=== PATIENT | female | born 1995 | race Caucasian/White ===

== ENCOUNTER 2017-06-12 17:07 | Emergency (ER) | payer MEDICAID, OTHER ==
[2017-06-12 17:08] VITALS: BMI 24.4
[2017-06-12 17:35] VITALS: TEMP 99.1; O2SAT 100
[2017-06-12] MEDS ORDERED: Sodium Chloride 0.9% 1,000 ML IV STA (17:58)
--- NOTE | 2017-06-12 18:12 | ED PDOC ---
Arrival/HPI - General Historian: Patient - History of Present Illness Time/Duration: 1 week Symptom Onset: Gradual Symptom Course: Unchanged Quality: Cramping Severity Level: 5 - General Chief Complaint: Abdominal Pain Time Seen by Provider: 06/12/17 17:52 - History of Present Illness Narrative History of Present Illness (Text): 06/12/17 18:09 21-year-old female presents today with a one-week history of lower abdominal cramping. Patient states pain radiates into her thighs. He states this is a normal sensation that she gets when she is due to have her period. Patient states her last period was May 27. Patient states a little over a week ago she took a Plan B. Patient states after utilizing the plan B she also had unprotected sex. Patient denies nausea vomiting diarrhea or constipation. Denies urinary symptoms. Denies bladder or bowel incontinence. Denies numbness weakness or tingling in the lower extremities. Denies chest pain or shortness of breath. Took Motrin for pain at home. No other complaints. (Tavia Ogden ) Past Medical History - Provider Review Nursing Documentation Reviewed: Yes - Travel History Have you recently traveled outside [place] w/in the past 3 mons?: No - Past History Past History: No Previous - Infectious Disease Hx of Infectious Diseases: None - Tetanus Immunization Tetanus Immunization: Up to Date - Past Medical History Past Medical History: No Previous - Psychiatric Hx Depression: No Hx Emotional Abuse: No Hx Physical Abuse: No Hx Substance Use: No - Past Surgical History Past Surgical History: No Previous - Suicidal Assessment Feels Threatened In Home Enviroment: No Family/Social History - Physician Review Nursing Documentation Reviewed: Yes Family/Social History: Unknown Family HX Smoking Status: Light Smoker < 10 Cigarettes Daily Hx Alcohol Use: No Hx Substance Use: No Hx Substance Use Treatment: No Allergies/Home Meds Allergies/Adverse Reactions: Allergies Penicillins Allergy (Verified 06/12/17 17:34) ANAPHYLAXIS Review of Systems - Review of Systems Constitutional: absent: Fatigue, Fevers Respiratory: absent: SOB, Cough Cardiovascular: absent: Chest Pain, Palpitations Gastrointestinal: Abdominal Pain. absent: Constipation, Diarrhea, Nausea, Vomiting Genitourinary Female: absent: Dysuria, Frequency, Hematuria, Vaginal Bleeding, Vaginal Discharge Musculoskeletal: Arthralgias, Back Pain. absent: Neck Pain Skin: absent: Rash, Pruritis Neurological: absent: Headache, Dizziness Psychiatric: absent: Anxiety, Depression Physical Exam Vital Signs Reviewed: Yes Temperature: Afebrile Blood Pressure: Normal Pulse: Regular Respiratory Rate: Normal Appearance: Positive for: Well-Appearing, Non-Toxic, Comfortable Pain Distress: None Mental Status: Positive for: Alert and Oriented X 3 - Systems Exam Head: Present: Atraumatic Mouth: Present: Moist Mucous Membranes Neck: Present: Normal Range of Motion Respiratory/Chest: Present: Clear to Auscultation, Good Air Exchange. No: Respiratory Distress, Accessory Muscle Use Cardiovascular: Present: Regular Rate and Rhythm, Normal S1, S2. No: Murmurs Abdomen: Present: Normal Bowel Sounds. No: Tenderness, Distention, Peritoneal Signs, Rebound, Guarding Genitourinary/Pelvic Exam: Present: Normal External Genitalia, Vaginal Discharge (slight white discharge noted.), Cervical os Closed, Other ( chaparoned by: kimi; er registration). No: Vaginal Bleeding, Vaginal Lesions , Adenexal Tenderness, Adenexal Mass, Cervical Motion Tendernes, Odor Back: Present: Normal Inspection. No: CVA Tenderness Upper Extremity: Present: Normal ROM Lower Extremity: Present: Normal ROM Neurological: Present: GCS=15, Speech Normal Skin: Present: Warm, Dry, Normal Color. No: Rashes Psychiatric: Present: Alert, Oriented x 3 Vital Signs Temp Pulse Resp BP Pulse Ox 06/12/17 22:03 85 18 115/68 100 06/12/17 17:34 99.1 F 81 16 115/75 100 Medical Decision Making ED Course and Treatment: 06/12/17 18:37 I was available for consultation during PA evaluation. The chart was reviewed by me, and I agree with disposition. The documented history was done by the physician electrical contractor. The documented physical exam was done by the physician electrical contractor. The documented procedures were done by the physician electrical contractor. (Marcos Zimmerman) 06/12/17 18:11 21yr old female with 1 week of lower abdominal cramping. cbc; wnl cmp: wnl beta hcg: negative ua: wnl US: FINDINGS: Uterus/cervix: The uterus measures 6.6 cm. Endometrial thickness 8mm. No myometrial mass. Right ovary: Right ovary 3.9 cm. Right ovarian simple cyst 2.6 cm. Normal blood flow. Left ovary: Left ovary 3.7 cm. Left ovary contains small physiologic follicles. Normal blood flow. Free fluid: No free fluid. IMPRESSION: Small follicles bilaterally. Small right ovarian cyst 2.6 cm. No torsion, no mass, or IUP pt with pain; toradol added. CT abd/pelvis; FINDINGS: Lower thorax: The bilateral lung bases are clear. ABDOMEN: Liver: No acute findings. Gallbladder and bile ducts: The gallbladder is decompressed. No calcified stones. No significant intra- or extrahepatic biliary ductal dilation. Pancreas: Enhances homogeneously. No ductal dilation. No discrete mass. Spleen: No acute findings. Adrenals: No acute findings. Kidneys and ureters: No acute findings. No hydronephrosis or renal calculi. No discrete solid mass. PELVIS: Bladder: No acute findings. Reproductive: 26 mm rounded focus of decreased attenuation within the right hemipelvis and this likely corresponds to the patient's right ovarian cyst, detected on ultrasound examination, performed the same day. Appendix: The air filled appendix is of normal caliber (series 2, image 108). ABDOMEN and PELVIS: Stomach and bowel: No obstruction. No mucosal thickening. Peritoneum: No significant fluid collection. No free air. Lymph nodes: No pathologically enlarged lymph nodes. Vasculature: Unremarkable. Bones: No acute fracture. IMPRESSION: Right ovarian cyst. Normal appendix. pt reassessment; pt feeling better after medications; abdomen; non tender; will send gC/chlamydia cultures. zithromax 2g PO given. I discussed the results and thus with the patient. Advised follow-up with the primary care physician and lab director within the next 2 days. Advised to return if symptoms worsen or persist or if new concerning symptoms develop Patient verbalizes understanding of discharge instructions and need for immediate followup. advised pt to f/u with gc/chlamydia cultures within the next 5 days . Impression; abdominal pain, ovarian cyst, vaginal discharge Increase fluids Follow-up with primary care physician within the next 2 days Follow-up with her lab director within the next 2 days Motrin every 6 hours as needed for pain Return immediately if symptoms worsen or persist or if new concerning symptoms develop (Tavia Ogden) - Lab Interpretations Lab Results: 06/12/17 18:21 06/12/17 18:21 Lab Results 06/12/17 20:30: Urine Color Yellow, Urine Appearance Clear, Urine pH 8.0, Ur Specific [place] 1.020, Urine Protein Negative, Urine Glucose (UA) Negative, Urine Ketones Negative, Urine Blood Negative, Urine Nitrate Negative, Urine Bilirubin Negative, Urine Urobilinogen 1.0 H, Ur Leukocyte Esterase Negative 06/12/17 18:21: Beta HCG, Quant < 2.39 06/12/17 18:21: WBC 10.6, RBC 4.57, Hgb 13.7, Hct 40.2, MCV 88.0, MCH 30.0, MCHC 34.1, RDW 13.5, Plt Count 312, MPV 9.2, Gran % 72.4 H, Lymph % (Auto) 19.9 L, [place] % (Auto) 5.9, Eos % (Auto) 1.7, Baso % (Auto) 0.1, Gran # 7.69 H, Lymph # 2.1, [place] # 0.6, Eos # 0.2, Baso # 0.01 06/12/17 18:21: Sodium 142, Potassium 4.0, Chloride 102, Carbon Dioxide 30, Anion Gap 14, BUN 12, Creatinine 0.8, Est GFR ( Amer) > 60, Est GFR (Non- Af Amer) > 60, Random Glucose 80, Calcium 9.7, Total Bilirubin 0.5, AST 19, ALT 21, Alkaline Phosphatase 69, Total Protein 7.9, Albumin 4.5, Globulin 3.4, Albumin/Globulin Ratio 1.3, Lipase 81 - RAD Interpretation Radiology Orders: 06/12/17 18:07 TRANSVAGINAL [US] Stat 06/12/17 21:00 ABD & PELVIS IV CONTRAST ONLY [CT] Stat - Medication Orders Current Medication Orders: Discontinued Medications Azithromycin (Zithromax) 2,000 mg PO STAT STA PRN Reason: Protocol Stop: 06/13/17 00:05 Last Admin: 06/13/17 00:18 Dose: 2,000 mg Sodium Chloride (Sodium Chloride 0.9%) 1,000 mls @ 999 mls/hr IV .Q1H1M STA Stop: 06/12/17 18:58 Last Admin: 06/12/17 19:33 Dose: 999 mls/hr Iohexol (Omnipaque 350 100 Ml) Confirm Administered Dose 350 mg .ROUTE .STK-MED ONE Stop: 06/12/17 21:53 Ketorolac Tromethamine (Toradol) 30 mg IVP STAT STA Stop: 06/12/17 20:34 Last Admin: 06/12/17 20:47 Dose: 30 mg Disposition/Present on Arrival - Present on Arrival Any Indicators Present on Arrival: No History of DVT/PE: No History of Uncontrolled Diabetes: No Urinary Catheter: No History of Decub. Ulcer: No History Surgical Site Infection Following: None - Disposition Have Diagnosis and Disposition been Completed?: Yes Disposition Time: 23:18 Patient Plan: Discharge - Disposition Diagnosis: Abdominal pain, Ovarian cyst, Vaginal discharge Disposition: HOME/ ROUTINE Condition: GOOD Discharge Instructions (ExitCare): Ovarian Cyst (ED), Acute Abdominal Pain (ED) Additional Instructions: Increase fluids Follow-up with primary care physician within the next 2 days Follow-up with her lab director within the next 2 days Motrin every 6 hours as needed for pain Return immediately if symptoms worsen or persist or if new concerning symptoms develop Prescriptions: Ibuprofen [Motrin Tab] 400 mg PO Q6H PRN #20 tab PRN Reason: Pain, Mild (1-3) Referrals: Sandra Ernst MD [Staff Provider] - Follow up with primary La Herrera MD [Staff Provider] - Follow up with primary Forms: [facility] (Kinyarwanda), WORK NOTE
[2017-06-12 18:36] LABS: BASO # 0.01 K/mm3 (0.0-2.0); BASO % 0.1 % (0.0-3.0); EOS # 0.2 (0.0-0.7); EOS % 1.7 % (1.5-5.0); GRAN # 7.69 (1.4-6.5); GRAN % 72.4 % (50.0-68.0); HEMOGLOBIN 13.7 g/dL (12.0-16.0); LYMPH # 2.1 (1.2-3.4); LYMPH % 19.9 % (22.0-35.0); MEAN CORPUSCULAR HGB CONC 34.1 g/dl (31.0-37.0); MEAN PLATELET VOLUME 9.2 fl (7.0-11.0); MONO # 0.6 (0.1-0.6); MONO % 5.9 % (1.0-6.0); PLATELET COUNT 312 10^3/uL (120.0-450.0); RBC 4.57 10^6/uL (3.5-6.1); RED CELL DISTRIBUTION WIDTH 13.5 % (11.5-14.5); WHITE BLOOD COUNT 10.6 10^3/ul (4.5-11.0)
[2017-06-12 18:46] LABS: ALB/GLOB RATIO 1.3 (1.1-1.8); ALBUMIN 4.5 g/dL (3.0-4.8); ALT/SGPT 21 U/L (7-56); AST/SGOT 19 U/L (15-39); BLOOD UREA NITROGEN 12 mg/dL (7-21); CALCIUM 9.7 mg/dL (8.4-10.5); GFR AFRICAN-AMERICAN > 60; GFR NON-AFRICAN AMERICAN > 60; LIPASE 81 U/L (23-300)
[2017-06-12 20:48] LABS: URINE BILIRUBIN NEGATIVE (NEGATIVE); URINE BLOOD NEGATIVE (NEGATIVE); URINE GLUCOSE (UA) NEGATIVE (NEGATIVE); URINE LEUKOCYTE ESTERASE NEGATIVE Leu/uL (NEGATIVE); URINE NITRATE NEGATIVE (NEGATIVE); URINE PROTEIN NEGATIVE mg/dL (<30 mg/dL)
[2017-06-12 20:49] LABS: URINE APPEARANCE CLEAR (CLEAR); URINE COLOR YELLOW (YELLOW)
[2017-06-12] MEDS ORDERED: Iohexol 350 MG/100 ML VIAL ONE (21:52)
[2017-06-12 22:04] VITALS: BP 115/68; PULSE 85; RESP 18
--- NOTE | 2017-06-12 23:01 | CT ---
EXAM: CT Abdomen and Pelvis With Intravenous Contrast CLINICAL HISTORY: 21 years old, female; Pain; Abdominal pain; Tenderness; Lower; Additional info: Lower abdominal tenderness TECHNIQUE: Axial computed tomography images of the abdomen and pelvis with intravenous contrast. All CT scans at this facility use one or more dose reduction techniques, viz.: automated exposure control; ma/kV adjustment per patient size (including targeted exams where dose is matched to indication; i.e. head); or iterative reconstruction technique. Coronal and sagittal reformatted images were created and reviewed. CONTRAST: 100 mL of OMNI 350 administered intravenously. COMPARISON: None. Reference is made to a ultrasound examination of the pelvis performed 06/12/2017 FINDINGS: Lower thorax: The bilateral lung bases are clear. ABDOMEN: Liver: No acute findings. Gallbladder and bile ducts: The gallbladder is decompressed. No calcified stones. No significant intra- or extrahepatic biliary ductal dilation. Pancreas: Enhances homogeneously. No ductal dilation. No discrete mass. Spleen: No acute findings. Adrenals: No acute findings. Kidneys and ureters: No acute findings. No hydronephrosis or renal calculi. No discrete solid mass. PELVIS: Bladder: No acute findings. Reproductive: 26 mm rounded focus of decreased attenuation within the right hemipelvis and this likely corresponds to the patient's right ovarian cyst, detected on ultrasound examination, performed the same day. Appendix: The air filled appendix is of normal caliber (series 2, image 108). ABDOMEN and PELVIS: Stomach and bowel: No obstruction. No mucosal thickening. Peritoneum: No significant fluid collection. No free air. Lymph nodes: No pathologically enlarged lymph nodes. Vasculature: Unremarkable. Bones: No acute fracture. IMPRESSION: Right ovarian cyst. Normal appendix.
--- NOTE | 2017-06-13 09:47 | US ---
PROCEDURE: HISTORY: pain COMPARISON: TECHNIQUE: FINDINGS: The uterus measures 6.6 x 3.8 x 4.5 centimeters. The endometrium measures 8 millimeters. The right ovary measures 3.9 x 2.4 centimeters and contains 2.5 centimeter cyst. Left ovary measures 3.7 x 2.5 centimeters. There is no free fluid the pelvis. There is no evidence of intrauterine . IMPRESSION: As above.
== END 2017-06-13 00:28 | disposition home or self-care (01) ==
LOC: ED 17:07
DX: R10.9 Unspecified abdominal pain (principal); N83.201 Unspecified ovarian cyst, right side; N89.8 Other specified noninflammatory disorders of vagina
CPT/HCPCS: 74177; 76830; 80053; 81003; 83690; 84702; 85025; 87491; 87591; 96361; 96374; 99284; J1885; J7040; Q9967